=== PATIENT | male | born 1985 | race Two or more races ===

== ENCOUNTER 2025-10-15 12:25 | Inpatient (IN) | payer BC ==
[~2025-10-15] VITALS: Ht 188 cm; Wt 99.8 kg
[2025-10-15] MEDS ORDERED: MORPHINE SULFATE 4 MG/ML CARTRIDGE IV STA ×3 (12:30→13:23)
[2025-10-15] MEDS ORDERED: FAMOTIDINE/PF 20 MG/2 ML VIAL IV PUSH STA (12:30)
[2025-10-15] MEDS ORDERED: RINGERS SOLUTION,LACTATED 1,000 ML IV STA ×2 (12:31→13:51)
[2025-10-15] MEDS ORDERED: ONDANSETRON HCL 2 MG/ML VIAL IV STA (12:32)
--- NOTE | 2025-10-15 12:36 | NUR ---
SE RECIBE PACIENTE ALERTA Y ORIENTADO X3 EL CUAL REFIERE VENIR A CAUSA DE QUE PETERS PRESENTADO DOLOR ABDOMINAL SOCORRO. SE MIDEN S/V Y SE UBICA.
[2025-10-15 13:08] LABS: BASO % 0.3 % (0.1-1.2); EOS # 0.10 (0.04-0.54); EOS % 0.5 % (0.7-7.0); LYMPH # 2.48 (1.18-3.74); LYMPH % 11.6 % (19.3-53.1); MEAN PLATELET VOLUME 9.30 fl (9.4-12.4); MONO # 1.88 (0.24-0.82); MONO % 8.8 % (4.7-12.5); NEUT # 16.72 (1.56-6.13); NEUT % 78.1 % (34.0-71.1); RED CELL DISTRIBUTION WIDTH 17.2 % (11.6-14.4)
--- NOTE | 2025-10-15 13:09 | NUR ---
SE ORIENTA A PACIENTE SOBRE TRATAMIENTO MEDICO, REFIERE ENTENDER. SE REALIZAN MUESTRAS DE LABORATORIO BAJO MEDIDAS ASEPTICAS. SE ADMINISTRAN MEDICAMENTOS LOVE ORDEN MEDICA. SE COORDINA ALTAGRACIA X.
[2025-10-15] MEDS ORDERED: MORPHINE SULFATE 4 MG/ML VIAL IV ONE (13:30)
[2025-10-15 13:34] LABS: ALT/SGPT 69.0 U/L (12-78); AST/SGOT 66.0 U/L (15-37); BILIRUBIN TOTAL 0.52 mg/dL (0.3-1.2); BUN CREA RATIO 7.0 (7.0-25.0); CREATININE SERUM 1.34 mg/dL (0.70-1.30); GFR 59.66; GLOBULINA 4.4 G/DL (2.4-3.5); GLUCOSE FASTING 137.0 mg/dL (65-100); OSMOLALITY SERUM 288.0 MOSM/KG (275-295)
[2025-10-15] MEDS ORDERED: PIPERACILLIN/TAZOBACTAM SODIUM 3.375 GM VIAL IV ONE ×2 (13:49→19:32)
[2025-10-15] MEDS ORDERED: PIPERACILLIN/TAZOBACTAM SODIUM 3.375 GM VIAL IV STA (13:50)
[2025-10-15 14:02] LABS: URINE APPEARANCE Clear; URINE BILIRRUBIN Small (NEGATIVE); URINE BLOOD Negative; URINE COLOR Dark Yellow; URINE GLUCOSE Negative (NEGATIVE); URINE KETONE 15 (NEGATIVE); URINE LEUKOCYTE Trace; URINE NITRATE Negative; URINE UROBILINOGEN 1.0 E.U./dl
[2025-10-15 14:06] LABS: URINE BACTERIA 21.7 uL (0.0-1933); URINE CAST 2.83 uL (0.0-1.40); URINE EPITHELIAL CELLS 3.8 uL (0.0-38.8); URINE RBC 3.6 uL (0.0-20.8); URINE WBC 3.2 uL (0.0-23.2)
[2025-10-15 14:09] LABS: URINE PROTEIN 100 (NEGATIVE)
[2025-10-15 14:29] LABS: INR 1.0
--- NOTE | 2025-10-15 16:16 | NUR ---
SE CONECTA PTE. A MONITOR CARDIACO, OXIMETRIA DE PULSO Y CANULA NASAL A 3 LTS. SE ORIENTA SOBRE MEDICACION ADMINISTRADA Y SEGUIMIENTO DE TRATAMIENTO [facility]. CLIENTE ALERTA Y ORIENTADO [facility] INTERVENCION POR PERSONAL RN. SE MANTIENE EN OBSERVACION POR CAMBIOS DENTRO DE FRIEDMAN CONDICION.
[2025-10-15] MEDS ORDERED: FAMOTIDINE/PF 20 MG/2 ML VIAL IV SCH (18:26)
[2025-10-15] MEDS ORDERED: PIPERACILLIN/TAZOBACTAM SODIUM 3.375 GM in DEXTROSE 5 % IN WATER 100 ML IV SCH (18:26)
[2025-10-15] MEDS ORDERED: ACETAMINOPHEN 500 MG GEL..CAP PO PRN (18:30)
[2025-10-15] MEDS ORDERED: ENALAPRILAT DIHYDRATE 1.25 MG/ML VIAL IV PRN (18:30)
[2025-10-15] MEDS ORDERED: ONDANSETRON HCL 4 MG in 0.9 % SODIUM CHLORIDE 50 ML IV PRN (18:30)
[2025-10-15] MEDS ORDERED: RINGERS SOLUTION,LACTATED 1,000 ML IV SCH (18:30)
[2025-10-15] MEDS ORDERED: INSULIN LISPRO 1,000 UNIT/10 ML UNITS SUBCUTANEO PRN (18:30)
[2025-10-15] MEDS ORDERED: DEXTROSE 50 % IN WATER 0.5 G/ML DISP.SYRIN IV PRN (18:30)
[2025-10-15] MEDS ORDERED: FAMOTIDINE/PF 20 MG/2 ML VIAL ONE (19:32)
[2025-10-15] MEDS ORDERED: MORPHINE SULFATE 4 MG/ML VIAL IV SCH (20:00)
[2025-10-15 23:34] VITALS: BP 140/80; O2SAT 99
[2025-10-15 23:57] VITALS: BP 140/80
[2025-10-16 03:19] VITALS: BP 134/91; O2SAT 94
[2025-10-16 06:14] LABS: BASO % 0.2 % (0.1-1.2); EOS # 0.01 (0.04-0.54); EOS % 0.0 % (0.7-7.0); LYMPH # 1.00 (1.18-3.74); LYMPH % 4.0 % (19.3-53.1); MEAN PLATELET VOLUME 9.80 fl (9.4-12.4); MONO # 2.07 (0.24-0.82); MONO % 8.3 % (4.7-12.5); NEUT # 21.49 (1.56-6.13); NEUT % 86.2 % (34.0-71.1); RED CELL DISTRIBUTION WIDTH 18.2 % (11.6-14.4)
[2025-10-16 06:36] LABS: ALT/SGPT 62.0 U/L (12-78); AST/SGOT 80.0 U/L (15-37); BILIRUBIN TOTAL 1.13 mg/dL (0.3-1.2); BUN CREA RATIO 11.0 (7.0-25.0); CREATININE SERUM 1.45 mg/dL (0.70-1.30); GFR 54.47; GLOBULINA 4.0 G/DL (2.4-3.5); OSMOLALITY SERUM 284.0 MOSM/KG (275-295)
[2025-10-16 06:37] LABS: GLUCOSE FASTING 229.0 mg/dL (65-100)
[2025-10-16] MEDS ORDERED: ENOXAPARIN SODIUM 40 MG/0.4 ML SYRINGE SUBCUTANEO SCH (09:00)
[2025-10-16 09:27] VITALS: BP 126/74; O2SAT 94
[2025-10-16] MEDS ORDERED: fentaNYL 50 MCG PATCH.TD72 TD SCH (12:15)
[2025-10-16] MEDS ORDERED: PIPERACILLIN/TAZOBACTAM SODIUM 3.375 GM VIAL IV ONE (12:18)
[2025-10-16] MEDS ORDERED: KETOROLAC TROMETHAMINE 30 MG VIAL IV PRN (12:45)
[2025-10-16] MEDS ORDERED: MORPHINE SULFATE 4 MG/ML VIAL IV SCH (13:00)
[2025-10-16 18:43] VITALS: BP 139/86
[2025-10-17 03:05] VITALS: BP 116/78; O2SAT 97
[2025-10-17 08:15] LABS: ALT/SGPT 43.0 U/L (12-78); AST/SGOT 62.0 U/L (15-37); BILIRUBIN TOTAL 1.37 mg/dL (0.3-1.2); BUN CREA RATIO 14.0 (7.0-25.0); CREATININE SERUM 2.0 mg/dL (0.70-1.30); GFR 37.58; GLOBULINA 3.7 G/DL (2.4-3.5)
[2025-10-17 08:16] LABS: GLUCOSE FASTING 227.0 mg/dL (65-100); OSMOLALITY SERUM 290.0 MOSM/KG (275-295)
[2025-10-17 09:41] VITALS: BP 132/77; O2SAT 89
[2025-10-17 19:01] VITALS: BP 140/85; O2SAT 100
[2025-10-18 03:01] VITALS: BP 139/84; O2SAT 96
[2025-10-18 08:58] LABS: BASO % 0.4 % (0.1-1.2); EOS # 0.04 (0.04-0.54); EOS % 0.2 % (0.7-7.0); LYMPH # 1.18 (1.18-3.74); LYMPH % 5.7 % (19.3-53.1); MEAN PLATELET VOLUME 10.20 fl (9.4-12.4); MONO # 2.26 (0.24-0.82); MONO % 10.9 % (4.7-12.5); NEUT # 16.86 (1.56-6.13); NEUT % 81.2 % (34.0-71.1); RED CELL DISTRIBUTION WIDTH 17.0 % (11.6-14.4)
[2025-10-18 09:12] VITALS: BP 155/93
[2025-10-18 09:30] LABS: BAND MAN 7.0 %; LYMPHOCYTE MAN 5.0 %; MONOCYTE MAN 7.0 %; NEUTROPHILS MAN 81.0 %
[2025-10-18 09:58] LABS: ALT/SGPT 34.0 U/L (12-78); AST/SGOT 43.0 U/L (15-37); BILIRUBIN TOTAL 0.93 mg/dL (0.3-1.2); BUN CREA RATIO 16.0 (7.0-25.0); CREATININE SERUM 1.31 mg/dL (0.70-1.30); GFR 61.24; GLOBULINA 3.5 G/DL (2.4-3.5); GLUCOSE FASTING 188.0 mg/dL (65-100); OSMOLALITY SERUM 282.0 MOSM/KG (275-295)
[2025-10-18] MEDS ORDERED: MAGNESIUM SULFATE IN WATER 50 ML IV NR (13:00)
[2025-10-18] MEDS ORDERED: NAPH,MB-DB/K PH,MBDB 1 PKT PACKET PO SCH (13:00)
[2025-10-18] MEDS ORDERED: MORPHINE SULFATE 4 MG/ML VIAL IV SCH (13:00)
[2025-10-18 17:05] VITALS: BP 175/102; O2SAT 96
[2025-10-18 19:05] VITALS: BP 150/85; O2SAT 98
[2025-10-19 02:07] VITALS: BP 175/99; O2SAT 92
[2025-10-19 09:22] VITALS: BP 165/99
[2025-10-19 11:27] LABS: BASO % 0.3 % (0.1-1.2); EOS # 0.05 (0.04-0.54); EOS % 0.2 % (0.7-7.0); LYMPH # 1.06 (1.18-3.74); LYMPH % 4.9 % (19.3-53.1); MEAN PLATELET VOLUME 10.20 fl (9.4-12.4); MONO # 2.19 (0.24-0.82); MONO % 10.1 % (4.7-12.5); NEUT # 17.61 (1.56-6.13); NEUT % 81.0 % (34.0-71.1); RED CELL DISTRIBUTION WIDTH 16.9 % (11.6-14.4)
[2025-10-19 12:26] LABS: ALT/SGPT 31.0 U/L (12-78); AST/SGOT 36.0 U/L (15-37); BILIRUBIN TOTAL 0.86 mg/dL (0.3-1.2); BUN CREA RATIO 9.0 (7.0-25.0); CREATININE SERUM 1.11 mg/dL (0.70-1.30); GFR 74.14; GLOBULINA 3.7 G/DL (2.4-3.5)
[2025-10-19 12:27] LABS: OSMOLALITY SERUM 281.0 MOSM/KG (275-295)
[2025-10-19 12:28] LABS: GLUCOSE FASTING 245.0 mg/dL (65-100)
[2025-10-19 21:30] VITALS: BP 150/100
[2025-10-19] MEDS ORDERED: PIPERACILLIN/TAZOBACTAM SODIUM 3.375 GM in DEXTROSE 5 % IN WATER 100 ML IV SCH (21:53)
[2025-10-20 03:51] VITALS: BP 172/121; O2SAT 95
[2025-10-20 08:45] VITALS: BP 150/90; O2SAT 94
[2025-10-20 13:49] LABS: BASO % 0.4 % (0.1-1.2); EOS # 0.11 (0.04-0.54); EOS % 0.5 % (0.7-7.0); LYMPH # 1.43 (1.18-3.74); LYMPH % 6.3 % (19.3-53.1); MEAN PLATELET VOLUME 10.30 fl (9.4-12.4); MONO # 2.29 (0.24-0.82); MONO % 10.1 % (4.7-12.5); NEUT # 17.55 (1.56-6.13); NEUT % 77.6 % (34.0-71.1); RED CELL DISTRIBUTION WIDTH 17.0 % (11.6-14.4)
[2025-10-20] MEDS ORDERED: PIPERACILLIN/TAZOBACTAM SODIUM 3.375 GM VIAL IV ONE (23:25)
[2025-10-21] VITALS: BP 187/117; O2SAT 95
[2025-10-21] MEDS ORDERED: MORPHINE SULFATE 4 MG/ML VIAL IV PRN (01:00)
[2025-10-21 08:09] LABS: ALT/SGPT 39.0 U/L (12-78); AST/SGOT 40.0 U/L (15-37); BILIRUBIN TOTAL 0.75 mg/dL (0.3-1.2); BUN CREA RATIO 9.0 (7.0-25.0); CREATININE SERUM 1.23 mg/dL (0.70-1.30); GFR 65.86; GLOBULINA 3.8 G/DL (2.4-3.5); OSMOLALITY SERUM 285.0 MOSM/KG (275-295)
[2025-10-21 08:14] LABS: GLUCOSE FASTING 208.0 mg/dL (65-100)
[2025-10-21 09:17] VITALS: BP 164/90; O2SAT 95
[2025-10-21 11:13] LABS: BASO % 0.4 % (0.1-1.2); EOS # 0.15 (0.04-0.54); EOS % 0.7 % (0.7-7.0); LYMPH # 1.40 (1.18-3.74); LYMPH % 6.6 % (19.3-53.1); MEAN PLATELET VOLUME 10.10 fl (9.4-12.4); MONO # 3.20 (0.24-0.82); NEUT # 14.82 (1.56-6.13); NEUT % 69.6 % (34.0-71.1); RED CELL DISTRIBUTION WIDTH 16.8 % (11.6-14.4)
[2025-10-21 11:14] LABS: MONO % 15.0 % (4.7-12.5)
[2025-10-21] MEDS ORDERED: PIPERACILLIN/TAZOBACTAM SODIUM 3.375 GM VIAL IV ONE (15:53)
[2025-10-21 18:31] VITALS: BP 178/123; O2SAT 97
== END 2025-10-21 23:26 | disposition left against medical advice (07) | DRG 439 ==
LOC: ER 12:25 → MEDI 19:53 → SEC-K 19:53 → MEDI 21:20
PROVIDERS: General Practice; Internal Medicine; Internal Medicine Infectious Disease; ADMIT Internal Medicine; ATTEND Internal Medicine
PROC: BW21ZZZ Computerized Tomography (CT Scan) of Abdomen and Pelvis (ICD-10-PCS; principal; 2025-10-15)
PROC: 02HV33Z Insertion of Infusion Device into Superior Vena Cava, Percutaneous Approach (ICD-10-PCS; 2025-10-20)
DX: K85.90 Acute pancreatitis without necrosis or infection, unspecified (principal); N17.9 Acute kidney failure, unspecified; I10 Essential (primary) hypertension; E11.9 Type 2 diabetes mellitus without complications; Z79.4 Long term (current) use of insulin; D72.829 Elevated white blood cell count, unspecified; Z53.29 Procedure and treatment not carried out because of patient's decision for other reasons